=== PATIENT | female | born 1965 | race Caucasian/White ===

== ENCOUNTER 2020-07-27 16:30 | Emergency (ER) | payer MEDICARE, MEDICAID, SELFPAY ==
[2020-07-27 17:19] VITALS: BP 146/99; PULSE 111; RESP 19; TEMP 36.9; O2SAT 97; BMI 32.0
--- NOTE | 2020-07-27 17:30 | ED_ITS ---
HPI - Syncope General Chief Complaint: Syncope Stated Complaint: passed out in lobby Time Seen by Provider: 07/27/20 17:22 Source: patient Mode of arrival: ambulatory Limitations: no limitations History of Present Illness HPI narrative: 55-year-old female presents for syncopal episode while receiving bad news about a family member. She was in this hospitals waiting room when she received dire news about her father, she had a syncopal episode while with her family. Family members caught her and were able to seat her. She does not describe any injury. She does have a history of syncope during great emotional distress. MD complaint: felt faint and collapsed Onset (ago): minute(s) -: minutes(s) Prodromal symptoms: lightheaded and heart racing Witnessed: Yes - by Bystander Context: other (Patient received news that her family member was dying) Injuries sustained associated with event: none Current symptoms: back to baseline History: previous syncopal episode Treatments prior to arrival: none Related Data Home Medications Medication Instructions Recorded Confirmed cyclobenzaprine 1 tab PO BEDTIME PRN 07/27/20 07/27/20 diclofenac sodium g TOPICAL QID PRN 07/27/20 dulaglutide [Trulicity] 0.5 ml SUBCUT QWEEK 07/27/20 07/27/20 duloxetine 1 cap PO DAILY 07/27/20 07/27/20 hydroxyzine pamoate cap PO 07/27/20 insulin glargine [Lantus Solostar 78 unit SUBCUT BID 07/27/20 07/27/20 U-100 Insulin] insulin lispro [Humalog KwikPen unit SUBCUT 07/27/20 Insulin] omeprazole 1 cap PO DAILY 07/27/20 07/27/20 pregabalin cap PO 07/27/20 sulindac 1 tab PO BID PRN 07/27/20 07/27/20 zolpidem 1 tab PO BEDTIME PRN 07/27/20 07/27/20 Allergies Allergy/AdvReac Type Severity Reaction Status Date / Time codeine Allergy Nausea and Verified 07/27/20 17:27 Vomiting oxycodone Allergy Nausea and Verified 07/27/20 17:27 Vomiting Review of Systems Review of Systems: Constitutional: Positive syncope, No Weight loss, No Fever, No Chills, No Nigh t Sweats, No Fatigue, No Malaise ENT/Mouth: No Hearing loss, No Ear Pain, No Nasal Congestion, No Sinus Pain, No Hoarseness, No sore throat, No Rhinorrhea, No Swallowing Difficulty Eyes: No Eye Pain, No Swelling, No Redness, No Foreign Body, No Discharge, No Vision Changes Cardiovascular: No Chest Pain, No SOB, No Dyspnea on Exertion, No Orthopnea, No Edema, No Palpitations Respiratory: No Cough, No Sputum, No Wheezing, No Smoke Exposure, No Dyspnea Gastrointestinal: No Nausea, No Vomiting, No Diarrhea, No Constipation, No abdominal Pain, No Hematochezia, No Melena Genitourinary: no irregular bleeding, No Dysuria, No Urinary Frequency, No Hematuria, No Urinary Incontinence, No Urgency, No Flank Pain, No Urinary Flow Changes, No Hesitancy Musculoskeletal: No joint pain, No Myalgias, No Joint Swelling Skin: No Skin Lesions, No rash Neuro: No Weakness, No Numbness, No Paresthesias, No Loss of Consciousness, No Dizziness, No Headache Psych: Positive Anxiety/Panic, No Depression, No SI/HI/AH/VH, No Social Issues Heme/Lymph: No Bruising, No Bleeding,No Lymphadenopathy Endocrine: No Polyuria, No Polydipsia, No Temperature Intolerance Yes all other systems are reviewed and are negative [facility], [facility] Past Medical History Attestation statement: The following information was validated with the patient. Medical History (Updated 07/27/20 @ 19:59 by Elis Yarbrough NP) Arthritis Degenerative disc disease Diabetes mellitus, type 2 Hypercholesteremia Hypertension Social History Social History Alcohol intake: never Smoking Status: Never smoker Use of substances other than those prescribed or required for medical reasons: No Advance Directives: No Advance Directives Information Provided: Yes Physical Exam Vital Signs: Vital Signs: Last Vital Signs Temp 98.5 F 07/27/20 17:19 Pulse 111 H 07/27/20 17:19 Resp 19 07/27/20 17:19 BP 146/99 H 07/27/20 17:19 Pulse Ox 97 07/27/20 17:19 Body Mass Index 32.0 Appearance: Alert. Oriented X3. No acute distress. Eyes: Pupils equal, round and reactive to light. ENT: Pharynx normal. Neck: Normal inspection. Neck supple. CVS: Normal heart rate and rhythm. Pulses normal. Respiratory: No respiratory distress. Breath sounds normal. Abdomen: Soft and nontender. Skin: Skin warm and dry. Normal skin color. Normal skin turgor. Extremities: No lower extremity edema. Neuro: No motor deficit. No sensory deficit. NIH Stroke Scale Internal: Initial- Upon Arrival Level of Consciousness: Alert Level of Consciousness Questions: Answers both questions correctly Level of Consciousness Commands: Performs both tasks correctly Best Gaze: Normal Visual: No visual loss Facial Palsy: Normal Motor Arm (Right): No drift Motor Arm (Left): No drift Motor Leg (Right): No drift Motor Leg (Left): No drift Limb Ataxia: Absent Sensory: Normal Best Language: No aphasia Dysarthia: Normal Extinction and Inattention: No abnormality Score: 0 Course Course Course Narrative: 55-year-old female with past medical history of diabetes, hypertension, hyperlipidemia presents after syncopal episode while receiving bad news about her father. She was in our waiting room, during discussion of her father's physical condition she had a syncopal episode and was caught by family member and brought to a seated position without injury. Plan of care is to rule out ACS, NIH Stroke Scale negative upon arrival. Troponin elevated at 8.6 will repeat in 3 hours per algorithm. Patient received reports that her father had . Patient would like to be discharged because she wants to see her father in the ICU at this facility. Patient is charged against medical advice. She does verbalize understanding of the pros and cons of leaving against medical advice. Discussion with patient's family as well and they did verbalize understanding. machinist wood utilized for all correspondence. MDM - Syncope Differential Diagnosis Differential diagnosis: Likely syncope due to orthostatic hypotension, vasovagal syncope, subarachnoid hemorrhage and dehydration Medical Records Attestation: I reviewed the patient's medical records. Lab Data Attestation: I reviewed the patient's lab results. Result diagrams: 07/27/20 17:58 07/27/20 17:58 Labs: Lab Results 07/27/20 07/27/20 07/27/20 Range/Units 17:58 17:58 17:58 WBC 11.0 H (4.8-10.8) X10*3/uL RBC 5.10 (4.20-5.50) X10*6/uL Hgb 14.8 (12.0-16.0) g/dl Hct 45.5 (37-47) % MCV 89.2 (80-98) fL MCH 29.0 (27.0-33.0) pg MCHC 32.5 (31.0-35.0) g/dl RDW 17.2 H (11.0-16.0) % Plt Count 175 (160-400) X10*3/uL MPV 11.2 (9.4-12.3) fL Immature Gran % (Auto) 0.3 (0.0-0.4) % Neut % (Auto) 77.1 H (45-73) % Lymph % (Auto) 15.3 L (20-40) % [place] % (Auto) 6.5 (2-11) % Eos % (Auto) 0.5 (0-4) % Baso % (Auto) 0.3 (0-2) % Lymph # (Auto) 1.7 (1.2-4.9) X10*3/uL [place] # (Auto) 0.7 (0.1-1.2) X10*3/uL Eos # (Auto) 0.1 (0.0-0.4) X10*3/uL Baso # (Auto) 0.0 (0.0-0.2) X10*3/uL Abs Immat Gran (auto) 0.03 (0.00-0.03) X10*3/uL Absolute Neuts (auto) 8.5 H (2.0-8.3) X10*3/uL Absolute Nucleated RBC 0.000 (0.0-0.012) X10*3/uL Nucleated RBC % (auto) 0.0 (0.0-0.2) /100WBC PT 14.1 H (10.8-13.0) SEC INR 1.2 H (0.9-1.1) APTT 46.5 H (24.1-38.0) SEC Sodium 141 (135-145) mmol/L Potassium 4.4 (3.3-5.1) mmol/l Chloride 100 (96-108) mmol/L Carbon Dioxide 33 H (22-29) mmol/L Anion Gap 12 (12-20) BUN 6 L (9-16) mg/dL Creatinine 1.01 (0.5-1.4) mg/dL Estim Creat Clear Calc 61.4 Estimated GFR 57 Random Glucose 169 H (60-115) mg/dL Calcium 10.4 H (8.4-10.2) mg/dL Troponin I High Sens (<3.5-17.0) ng/L Urine Color Urine Appearance Urine pH (5.0-8.0) Ur Specific [place] (1.005-1.025) Urine Protein (NEG-TRACE) MG/DL Urine Glucose (UA) (NEG) MG/DL Urine Ketones (NEG) MG/DL Urine Blood (NEG) Urine Nitrite (NEG) Ur Leukocyte Esterase (NEG) 07/27/20 07/27/20 Range/Units 17:58 17:58 WBC (4.8-10.8) X10*3/uL RBC (4.20-5.50) X10*6/uL Hgb (12.0-16.0) g/dl Hct (37-47) % MCV (80-98) fL MCH (27.0-33.0) pg MCHC (31.0-35.0) g/dl RDW (11.0-16.0) % Plt Count (160-400) X10*3/uL MPV (9.4-12.3) fL Immature Gran % (Auto) (0.0-0.4) % Neut % (Auto) (45-73) % Lymph % (Auto) (20-40) % [place] % (Auto) (2-11) % Eos % (Auto) (0-4) % Baso % (Auto) (0-2) % Lymph # (Auto) (1.2-4.9) X10*3/uL [place] # (Auto) (0.1-1.2) X10*3/uL Eos # (Auto) (0.0-0.4) X10*3/uL Baso # (Auto) (0.0-0.2) X10*3/uL Abs Immat Gran (auto) (0.00-0.03) X10*3/uL Absolute Neuts (auto) (2.0-8.3) X10*3/uL Absolute Nucleated RBC (0.0-0.012) X10*3/uL Nucleated RBC % (auto) (0.0-0.2) /100WBC PT (10.8-13.0) SEC INR (0.9-1.1) APTT (24.1-38.0) SEC Sodium (135-145) mmol/L Potassium (3.3-5.1) mmol/l Chloride (96-108) mmol/L Carbon Dioxide (22-29) mmol/L Anion Gap (12-20) BUN (9-16) mg/dL Creatinine (0.5-1.4) mg/dL Estim Creat Clear Calc Estimated GFR Random Glucose (60-115) mg/dL Calcium (8.4-10.2) mg/dL Troponin I High Sens 8.5 (<3.5-17.0) ng/L Urine Color YELLOW Urine Appearance CLEAR Urine pH 7.0 (5.0-8.0) Ur Specific [place] <= 1.005 (1.005-1.025) Urine Protein NEG (NEG-TRACE) MG/DL Urine Glucose (UA) NEG (NEG) MG/DL Urine Ketones NEG (NEG) MG/DL Urine Blood NEG (NEG) Urine Nitrite NEG (NEG) Ur Leukocyte Esterase NEG (NEG) ECG Data Attestation: I personally reviewed and interpreted this ECG as follows: ECG interpretation date: 07/27/20 ECG interpretation time: 17:50 Prior ECG tracings: not available for review Interpretation: Vent. Rate : 105 BPM Atrial Rate : 105 BPM P-R Int : 158 ms QRS Dur : 126 ms QT Int : 388 ms P-R-T Axes : 068 -61 102 degrees QTc Int : 512 ms Sinus tachycardia Left axis deviation Left ventricular hypertrophy with QRS widening and repolarization abnormality Cannot rule out Septal infarct , age undetermined Abnormal ECG No previous ECGs available Scores Heart Score History: -1- moderately suspicious ECG: -1- non specific repolarization disturbance Age: -1- >45 - <65 Risk factory: -2- 3 or more risk factors or treated atherosclerosis Troponin: -0- < or = normal limit Score: 5 Risk: 16.6% Discharge Plan Discharge Clinical Impression: Vasovagal syncope Patient Disposition: Left Against Medical Advice Instructions: Syncope (ED) Additional Instructions: Please follow-up with primary care physician. Thank you for choosing this emergency department for evaluation. Please follow-up with primary care physician as needed. Return to the emergency d epartment for any new, concerning, or worsening symptoms. Prescriptions: No Action cyclobenzaprine 10 mg tablet 1 tab PO BEDTIME PRN (Reason: muscle spasm) RF: 0 hydroxyzine pamoate 50 mg capsule PO RF: 0 omeprazole 20 mg capsule,delayed release(DR/EC) 1 cap PO DAILY RF: 0 zolpidem 5 mg tablet 1 tab PO BEDTIME PRN (Reason: Sleep) RF: 0 sulindac 200 mg tablet 1 tab PO BID PRN (Reason: pain) RF: 0 insulin lispro [Humalog KwikPen Insulin] 100 unit/mL insulin pen subcut RF: 0 duloxetine 60 mg capsule,delayed release(DR/EC) 1 cap PO DAILY RF: 0 pregabalin 150 mg capsule PO RF: 0 Lantus Solostar U-100 Insulin 100 unit/mL (3 mL) insulin pen 78 unit subcut BID RF: 0 diclofenac sodium 1 % gel topical QID PRN (Reason: severe pain) RF: 0 Trulicity 1.5 mg/0.5 mL pen injector 0.5 ml subcut QWEEK RF: 0 Stand Alone Forms: Against Medical Advice
--- NOTE | 2020-07-27 17:31 | XR_ITS ---
EXAMINATION: XR CHEST CLINICAL INFORMATION: Syncope COMPARISON: None TECHNIQUE: Frontal view of the chest was obtained. FINDINGS: Heart size is normal. There is mild upper zone redistribution suggesting elevated left ventricular end-diastolic pressure. No gross edema is present. No effusions or consolidations are seen. Surgical clips noted in the right axilla. XR/XR chest 1V IMPRESSION: Mild upper zone redistribution suggesting some mild pulmonary vascular congestion.
[2020-07-27 18:04] LABS: MANUAL DIFF FLAG NO
[2020-07-27 18:06] LABS: Basophils Percent Auto 0.3 % (0-2); Eosinophils Absolute Auto 0.1 X10*3/uL (0.0-0.4); Eosinophils Percent Auto 0.5 % (0-4); Hematocrit 45.5 % (37-47); Hemoglobin 14.8 g/dl (12.0-16.0); Imm Gran Abs Auto 0.03 X10*3/uL (0.00-0.03); Imm Gran Pct Auto 0.3 % (0.0-0.4); Lymphocytes Absolute Auto 1.7 X10*3/uL (1.2-4.9); Lymphocytes Percent Auto 15.3 % (20-40); Mean Corpuscular HGB Conc 32.5 g/dl (31.0-35.0); Mean Corpuscular Volume 89.2 fL (80-98); Mean Platelet Volume 11.2 fL (9.4-12.3); Monocytes Absolute Auto 0.7 X10*3/uL (0.1-1.2); Monocytes Percent Auto 6.5 % (2-11); Neutrophils Absolute Auto 8.5 X10*3/uL (2.0-8.3); Neutrophils Percent Auto 77.1 % (45-73); Platelet Count 175 X10*3/uL (160-400); Red Cell Distribution Width 17.2 % (11.0-16.0)
[2020-07-27] MEDS: 0.9 % Sodium Chloride 1,000 ML 999 ML IVCONT (18:06)
[2020-07-27 18:08] LABS: Glucose Urine UA NEG (NEG); Leukocyte Esterase Urine NEG (NEG); Nitrite Urine NEG (NEG); Specific Gravity - Urine <= 1.005 (1.005-1.025); Urine Blood NEG (NEG); Urine Ketones NEG (NEG); Urine Protein NEG (NEG-TRACE)
[2020-07-27 18:12] LABS: Appearance Urine CLEAR; Color Urine YELLOW
[2020-07-27 18:17] LABS: INTERNATIONAL NORM RATIO 1.2 (0.9-1.1); Prothrombin Time 14.1 SEC (10.8-13.0)
[2020-07-27 18:19] LABS: Partial Thromboplastin Time 46.5 SEC (24.1-38.0)
[2020-07-27 18:24] LABS: Anion Gap 12 (12-20); Blood Urea Nitrogen 6 mg/dL (9-16); Calcium 10.4 mg/dL (8.4-10.2); Carbon Dioxide 33 mmol/L (22-29); Chloride 100 mmol/L (96-108); Creatinine Clr Calc Pharmacy 61.4; Estimated Glomerular Filt Rate 57; Glucose Random 169 mg/dL (60-115); Potassium 4.4 mmol/l (3.3-5.1); Sodium 141 mmol/L (135-145)
[2020-07-27 18:30] LABS: Troponin-I High Sensitivity 8.5 ng/L (<3.5-17.0)
[2020-07-28 11:45] LABS: Glucose, Whole Blood 156 mg/dL (60-115)
== END 2020-07-27 20:29 | disposition left against medical advice (07) ==
PROVIDERS: Internal Medicine; Nurse Practitioner Family; Emergency Provider Emergency Medicine
DX: R55 Syncope and collapse (principal); Z72.89 Other problems related to lifestyle; Z63.4 Disappearance and death of family member; I10 Essential (primary) hypertension; E11.9 Type 2 diabetes mellitus without complications; Z79.4 Long term (current) use of insulin
CPT/HCPCS: 36415; 71045; 80048; 81003; 82947; 84484; 85025; 85610; 85730; 93005; 96360; 99284